=== PATIENT | male | born 1960 | race African-American/Black ===

== ENCOUNTER → 2016-12-21 | Outpatient (CLI) | payer OTHER ==
--- NOTE | 2016-12-21 20:29 | RAD ---
EXAM: CT head without contrast HISTORY: STOOD UP AND HIT TOP OF HEAD ON METAL POLE. SMALL LAC. NO PREV NO SURGERIES COMPARISON: None. TECHNIQUE: Computed tomographic images of the head were obtained without contrast. RS compliance statement: One or more of the following individualized dose reduction techniques were utilized for this examination: 1. Automated exposure control 2. Adjustment of the mA and/or kV according to patient size 3. Use of iterative reconstruction technique FINDINGS: There is no acute intracranial process identified. Specifically, there are no intracranial blood products, extra-axial fluid collections, mass effect or midline shift. Ventricles and basilar cisterns are maintained. The visualized portions of the orbits, paranasal sinuses and mastoid air cells demonstrate no acute finding. There is chronic deformity of the medial right orbital wall. Overlying scalp and calvarium are intact. IMPRESSION: No acute intracranial findings. Electronically signed by: Gloria Bajwa MD (12/21/2016 8:26 PM) [facility]
== END | disposition home or self-care (01) ==
LOC: CT 19:20
PROVIDERS: ATTEND Preventive Medicine Occupational Medicine
DX: S06.0X0A Concussion without loss of consciousness, initial encounter (principal); H05.30 Unspecified deformity of orbit; W22.8XXA Striking against or struck by other objects, initial encounter; Y93.89 Activity, other specified; Y92.89 Other specified places as the place of occurrence of the external cause; Y99.8 Other external cause status
CPT/HCPCS: 70450